=== PATIENT | female | born 1985 | race Caucasian/White ===

== ENCOUNTER 2021-11-27 12:20 | Inpatient (IN) | payer SELFPAY ==
[2021-11-27 12:52] VITALS: BP 123/81; PULSE 85; RESP 18; TEMP 36.7; O2SAT 95
[2021-11-27 12:55] VITALS: BMI 40.4
[2021-11-27] MEDS: LORazepam 2 mg/mL INJ 1 mL IM (13:26)
[2021-11-27] MEDS: nicotine 2 mg Gum BUCCAL (13:26)
--- NOTE | 2021-11-27 13:30 | PC.NURSE ---
Addendum entered by Holly Hernandez RN 11/27/21 14:52: Prn note, patient c/o still being anxious, Ativan IM ineffective. Patient requests something for meds. Zyprexa given for anxiety. Original Note: Prn note Patient very anxious upon arrival to unit, noted to have tremors and stated she was going to have a bitch fit if she didn't get anything she stated she was allergic to haldol and refused vistaril and zyprexa. Ativan 2mg IM given to left deltoid.
[2021-11-27 14:00] VITALS: BP 123/81; PULSE 85; RESP 18; TEMP 36.7; O2SAT 97
[2021-11-27] MEDS: nicotine 21 mg Patch 1 PATCH TRANSDERMA (14:08)
[2021-11-27] MEDS: OLANZapine 5 mg ODT PO (14:50)
--- NOTE | 2021-11-27 16:07 | PC.NURSE ---
Prn note patient came to desk stating she still feels very anxious. Spoke with physician who ordered Thorazine 100mg po q 4 prn.
[2021-11-27] MEDS: chlorPROMazine 50 mg Tablet 100 MG PO (16:38)
--- NOTE | 2021-11-27 19:36 | PC.NURSE ---
Prn note Per Dr. John, he does not want patient to have any benzos and staff should discontinue Ativan. Orders discontinued
[2021-11-27 19:43] VITALS: BP 162/65; PULSE 123; RESP 18; TEMP 36.5; O2SAT 94
[2021-11-27] MEDS: hyDROXYzine 25 mg Capsule 50 MG PO (20:20)
[2021-11-28 06:00] VITALS: BP 117/77; PULSE 76; RESP 18; TEMP 36.4; O2SAT 97
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
[2021-11-28] MEDS: venlafaxine ER (24HR) 75 mg Capsule PO (12:08)
[2021-11-28] MEDS: trazodone 50 mg Tablet PO (12:54)
[2021-11-28] MEDS: blistex lip oint 7 gm Tube 1 APPLIC TOPICAL ×2 (12:56→16:36)
--- NOTE | 2021-11-28 12:56 | PC.NURSE ---
PRN TRAZODONE 50 MG GIVEN PO PER PT C/O ANXIETY.
[2021-11-28] MEDS: nicotine 21 mg Patch 1 PATCH TRANSDERMA (13:17)
[2021-11-28] MEDS: chlorPROMazine 50 mg Tablet 100 MG PO (13:48)
--- NOTE | 2021-11-28 13:49 | PC.NURSE ---
PRN THORAZINE 100 MG GIVEN PO PER PT C/O AGITATION. PT CALLED HER MOTHER, TOLD HER MOTHER SHE WASN'T GETTING ANY MEDICATIONS.
[2021-11-28 14:00] VITALS: BP 133/76; PULSE 89; RESP 18; TEMP 36.6; O2SAT 98
[2021-11-28] MEDS: acetaminophen 325 mg Tablet 650 MG PO (16:36)
[2021-11-28 20:27] VITALS: RESP 16
[2021-11-28] MEDS: trazodone 100 mg Tablet PO (20:55)
[2021-11-29 06:00] VITALS: BP 115/69; PULSE 86; RESP 20; TEMP 36.6; O2SAT 97
[2021-11-29] MEDS: chlorPROMazine 50 mg Tablet 100 MG PO ×2 (08:37→17:31)
[2021-11-29] MEDS: venlafaxine ER (24HR) 75 mg Capsule PO (08:37)
--- NOTE | 2021-11-29 08:37 | PC.NURSE ---
PRN THORAZINE 50 MG GIVEN PO PER PT C/O ANXIETY/AGITATION.
[2021-11-29] MEDS: acetaminophen 325 mg Tablet 650 MG PO (08:38)
[2021-11-29] MEDS: trazodone 50 mg Tablet PO (11:45)
--- NOTE | 2021-11-29 11:46 | PC.NURSE ---
PRN TRAZODONE 50 MG GIVEN PO PER PT C/O STATED ANXIETY
--- NOTE | 2021-11-29 12:40 | P.NPUPN_ITS ---
Subjective NPU Subjective: She is doing a little better. The trazodone during the day does not work well for her anxiety. However Thorazine seems to be doing something for that. She slept well with the trazodone 100 mg at bedtime. She took the Effexor this morning without any side effects. She feels like she needs a higher dose and was advised that was almost certainly a probability but we needed to increase it gradually. She was in agreement with that strategy. Mental Status Exam MSE Comments: This is an obese 36-year-old female who appears approximately her stated age and is in no acute distress. She is pleasant and cooperative with the evaluation. She is dressed in hospital scrubs with improved grooming. She just got out of the shower psychomotor activity is normal. Speech is at a regular rate and rhythm, normal volume, good articulation, not pressured. Alert, oriented X3 Attention and concentration appears to be normal. Memory is intact Mood is depressed. Affect is moderately dysphoric. Thought process is logical and goal-directed. Thought content: Denies auditory and visual hallucinations. No delusions or paranoia are noted. No current suicidal ideation, and no homicidal ideation. Fund of knowledge is average. Insight and judgment appear to be fair. Impulse control is poor. Cognition: Patient Appearance: Appropriate Ability to Follow Directions: Excellent Patient Orientation (long list): Person, Name, Age and Birthday Comprehension Ability: No Impairment Hallucination Type: None Delusion Description: Not Present Thought Process: Appropriate Affect: Affect Description: Calm Behavior: Patient Behavior: Cooperative Speech Pattern: Clear Vitals/I&O/Wt Last Vital Signs Temp 97.8 F 11/29/21 06:00 Pulse 86 11/29/21 06:00 Resp 20 H 11/29/21 06:00 BP 115/69 11/29/21 06:00 Pulse Ox 97 11/29/21 06:00 Weight last 48 hrs Weight 90.718 kg A&P Assessment and plan (1) PTSD (post-traumatic stress disorder): Status: Acute (2) Anxiety: Status: Acute (3) Depressive disorder: Status: Acute (4) Suicidal ideation: Status: Acute (5) Cannabis abuse: Status: Acute (6) Alcohol use disorder: Status: Acute Plan This is a 36-year-old single female with a long history of PTSD resulting in anxiety and depression and cluster B personality. Plan: 1. Trazodone 100 mg at bedtime. Effexor 75 mg titrated up as tolerated. Thorazine 100 mg every 4 hours as needed for anxiety 2. Continue every 15 minute checks for safety. 3. Encourage individual, group and milieu therapies. 4. Encourage sober living treatment after discharge at the highest level of care to which she is willing to commit. 5. We will monitor for safety for herself in the community prior to discharge. 6. We will continue to educate about the treatment of PTSD. Involuntary Hold Information 96 Hour Hold: 96 Hour Involuntary Admission: No Attestations NPU Medical Necessity Statement*: Inpatient hospitalization is medically necessary and the clinically appropriate intervention at this time. We will initiate medications and make changes as indicated. Coding Level of Care Code Acute Financial Systems Manager for Valeria Roman Diagnoses PTSD (post-traumatic stress disorder) F43.10 Anxiety F41.9 Depressive disorder F32.A Suicidal ideation R45.851 Cannabis abuse F12.10 Alcohol use disorder
[2021-11-29 14:00] VITALS: BP 115/69; PULSE 86; RESP 20; TEMP 36.6; O2SAT 97
--- NOTE | 2021-11-29 15:29 | PC.SOCIAL ---
Patient did not attend group.
--- NOTE | 2021-11-29 17:31 | PC.NURSE ---
PRN THORAZINE 50 MG GIVEN PO PER PT C/O STATED ANXIETY. PT APPEARS CALM, MED SEEKING BEHAVIORS NOTED. WILL CONT TO MONITOR
[2021-11-29] MEDS: nicotine 2 mg Gum BUCCAL (18:14)
[2021-11-29 19:38] VITALS: BP 137/81; PULSE 89; RESP 16; TEMP 36.4; O2SAT 97
[2021-11-29] MEDS: docusate sodium 100 mg Capsule PO (20:43)
[2021-11-29] MEDS: trazodone 100 mg Tablet PO (20:43)
[2021-11-30 06:00] VITALS: BP 112/78; PULSE 93; RESP 19; TEMP 36.7; O2SAT 96
[2021-11-30] MEDS: chlorPROMazine 50 mg Tablet 100 MG PO (09:40)
[2021-11-30] MEDS: venlafaxine ER (24HR) 75 mg Capsule PO (09:41)
[2021-11-30] MEDS: nicotine 4 mg lozenge MUCOUS MEM ×2 (10:20→12:42)
[2021-11-30] MEDS: hyDROXYzine 25 mg Capsule 50 MG PO ×2 (10:57→17:34)
--- NOTE | 2021-11-30 13:14 | P.NPUPN_ITS ---
Subjective NPU Subjective: She is doing a little better. She does not think that the Effexor is doing much and would like to increase it to 150 mg. She knows that is jumping the gun and could cause an increase in side effects but would like to try. The Thorazine 100 mg does not do much for her anymore and she would like to try bumping that up to 150 mg. She is looking into treatment options for her addictions. She looked at one that was too expensive. She has applied for Medicaid but she used the wrong form. She needs to submit that again. Mental Status Exam MSE Comments: This is an obese 36-year-old female who appears approximately her stated age and is in no acute distress. She is pleasant and cooperative with the evaluation. She is dressed in hospital scrubs with improved grooming. psychomotor activity is normal. Speech is at a regular rate and rhythm, normal volume, good articulation, not pressured. Alert, oriented X3 Attention and concentration appears to be normal. Memory is intact Mood is depressed slightly improved Affect is moderately dysphoric, a little better Thought process is logical and goal-directed. Thought content: Denies auditory and visual hallucinations. No delusions or paranoia are noted. No current suicidal ideation, and no homicidal ideation. Fund of knowledge is average. Insight and judgment appear to be fair. Impulse control is poor. Cognition: Patient Appearance: Appropriate Ability to Follow Directions: Excellent Patient Orientation (long list): Person, Name, Age and Birthday Comprehension Ability: No Impairment Hallucination Type: None Delusion Description: Not Present Thought Process: Appropriate Affect: Affect Description: Calm Behavior: Patient Behavior: Appropriate and Cooperative Speech Pattern: Clear Vitals/I&O/Wt Last Vital Signs Temp 98.1 F 11/30/21 06:00 Pulse 93 11/30/21 06:00 Resp 19 H 11/30/21 06:00 BP 112/78 11/30/21 06:00 Pulse Ox 96 11/30/21 06:00 A&P Assessment and plan (1) PTSD (post-traumatic stress disorder): Status: Acute (2) Anxiety: Status: Acute (3) Depressive disorder: Status: Acute (4) Suicidal ideation: Status: Acute (5) Cannabis abuse: Status: Acute (6) Alcohol use disorder: Status: Acute Plan This is a 36-year-old single female with a long history of PTSD resulting in anxiety and depression and cluster B personality. Plan: 1. Trazodone 100 mg at bedtime. Increase Effexor 150 mg. Increase Thorazine 150 mg every 4 hours as needed for anxiety 2. Continue every 15 minute checks for safety. 3. Encourage individual, group and milieu therapies. 4. Encourage sober living treatment after discharge at the highest level of care to which she is willing to commit. 5. We will monitor for safety for herself in the community prior to discharge. 6. We will continue to educate about the treatment of PTSD. Involuntary Hold Information 96 Hour Hold: 96 Hour Involuntary Admission: No Attestations NPU Medical Necessity Statement*: Inpatient hospitalization is medically necessary and the clinically appropriate intervention at this time. We will initiate medications and make changes as indicated. Coding Level of Care Code Acute Sandblasting Supervisor for Valeria Roman Diagnoses PTSD (post-traumatic stress disorder) F43.10 Anxiety F41.9 Depressive disorder F32.A Suicidal ideation R45.851 Cannabis abuse F12.10 Alcohol use disorder
[2021-11-30 13:47] VITALS: BP 120/76; PULSE 90; RESP 16; TEMP 36.6; O2SAT 99
[2021-11-30] MEDS: chlorPROMazine 50 mg Tablet 150 MG PO (15:39)
[2021-11-30 20:03] VITALS: BP 119/79; PULSE 107; RESP 18; TEMP 36.4; O2SAT 96
[2021-11-30] MEDS: trazodone 100 mg Tablet PO (21:46)
[2021-12-01 06:00] VITALS: BP 112/74; PULSE 92; RESP 18; TEMP 36.8; O2SAT 93
[2021-12-01] MEDS: venlafaxine ER (24HR) 75 mg Capsule 150 MG PO (09:54)
[2021-12-01] MEDS: nicotine 4 mg lozenge MUCOUS MEM ×2 (10:41→16:54)
[2021-12-01] MEDS: chlorPROMazine 50 mg Tablet 150 MG PO ×2 (12:35→16:54)
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
[2021-12-01 14:00] VITALS: BP 118/64; PULSE 104; RESP 18; TEMP 36.3; O2SAT 98
[2021-12-01] MEDS: ibuprofen 800 mg tablet PO (14:51)
--- NOTE | 2021-12-01 14:53 | PC.NURSE ---
Administered 800mg Motrin for radiating leg pain. Pt stated that pain was worsening and would like something stronger for pain.
[2021-12-01 21:09] VITALS: BP 127/83; PULSE 104; RESP 16; TEMP 36.8; O2SAT 96
[2021-12-01] MEDS: trazodone 100 mg Tablet PO (21:14)
[2021-12-02 06:00] VITALS: BP 114/77; PULSE 91; RESP 16; TEMP 36.7; O2SAT 96
[2021-12-02] MEDS: chlorPROMazine 50 mg Tablet 150 MG PO (08:15)
[2021-12-02] MEDS: nicotine 4 mg lozenge MUCOUS MEM (08:16)
[2021-12-02] MEDS: venlafaxine ER (24HR) 75 mg Capsule 150 MG PO (08:16)
[2021-12-02] MEDS: ibuprofen 800 mg tablet PO (08:16)
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
[2021-12-02 08:46] VITALS: BP 114/77; PULSE 91; RESP 16; TEMP 36.7; O2SAT 96
[2021-12-02] MEDS: OLANZapine 5 mg ODT PO (09:42)
== END 2021-12-02 09:44 | disposition home or self-care (01) | DRG 881 ==
PROVIDERS: Admitting Provider Psychiatry & Neurology Psychiatry; Visit Provider Psychiatry & Neurology Psychiatry
DX: F32.A Depression, unspecified (principal); R45.851 Suicidal ideations; F41.9 Anxiety disorder, unspecified; F43.10 Post-traumatic stress disorder, unspecified; F12.10 Cannabis abuse, uncomplicated; Z62.810 Personal history of physical and sexual abuse in childhood
CPT/HCPCS: 96372; 97150; 97165; J2060; Q0161